=== PATIENT | female | born 1995 | race Caucasian/White ===

== ENCOUNTER 2019-07-01 22:20 | Emergency (ER) | payer OTHER ==
[~2019-07-01] VITALS: Ht 167.6 cm; Wt 53.5 kg
[2019-07-03 06:09] LABS: HEPATITIS B SURFACE AB 006395 Reactive (.); HEPATITIS C AB <0.1 (0.0-0.9)
== END 2019-07-01 23:50 | disposition home or self-care (01) ==
LOC: ED 22:20
PROVIDERS: Student in an Organized Health Care Education/Training Program
DX: S61.235A Puncture wound without foreign body of left ring finger without damage to nail, initial encounter (principal); Z91.040 Latex allergy status; W27.3XXA Contact with needle (sewing), initial encounter; Y93.89 Activity, other specified; Y92.89 Other specified places as the place of occurrence of the external cause; Y99.0 Civilian activity done for income or pay

== ENCOUNTER → 2019-12-31 | Outpatient (CLI) | payer OTHER | END | disposition home or self-care (01) | LOC: LAB 07:39 | PROVIDERS: Internal Medicine | DX: Z51.89 Encounter for other specified aftercare (principal) ==